=== PATIENT | male | born 1990 | race Caucasian/White ===

== ENCOUNTER 2017-09-28 20:05 | Emergency (ER) | payer BC ==
[~2017-09-28] VITALS: Ht 175.3 cm; Wt 98.4 kg
[~2017-09-28 20:05] MED LIST: AMBEREN; AUGMENTIN 875875 MG; B-50 COMPLEX1 EAC1; COMPAZINE10 MG PO; FAMOTIDINE PO; NASONEX17 GM; PREDNISOLONE; PREDNISONE 20 M20 M1; VICODIN; ZYRTEC
[2017-09-28] MEDS ORDERED: FISH OIL 1,001000 M2 PO (20:18)
[2017-09-28] MEDS ORDERED: UNICOMPLEX M TA1 TA1 PO (20:19)
[2017-09-28] MEDS ORDERED: BIOTIN10 MG PO (20:19)
[2017-09-28 22:22] VITALS: BP 104/47
== END 2017-09-28 22:22 | disposition home or self-care (01) ==
LOC: ER 20:05
DX: S61.411A Laceration without foreign body of right hand, initial encounter (principal); W26.0XXA Contact with knife, initial encounter; Y93.89 Activity, other specified; Y92.89 Other specified places as the place of occurrence of the external cause; Y99.8 Other external cause status